=== PATIENT | female | born 1945 | race Caucasian/White ===

== ENCOUNTER → 2023-10-30 13:33 | Outpatient (CLI) | payer MEDICARE, SELFPAY ==
--- NOTE | 2023-10-30 13:36 | DI.NM.S_ITS ---
PROCEDURE: NM RENAL FUNCTION W LASIX RADIOPHARMACEUTICAL: 10.7 mCi Tc-99m MAG3 IV and 40 mg furosemide IV. INDICATIONS: OBST.OF RT URETEROPELVIC JUNCTION TECHNIQUE: The patient was hydrated orally before the examination was begun. After intravenous administration of Tc-99m MAG3, posterior abdominal radionuclide angiogram and sequential (1 minute each frame) renal images were obtained. A time-activity curve for each kidney was generated and analyzed. To evaluate for obstruction, the patient was given 40 mg furosemide via slow intravenous injection after the start of the examination. Sequential images were obtained for up to an additional 20 minutes. COMPARISON: None. FINDINGS: Perfusion: There is normal vascular flow to both kidneys. Morphology: There is a dilated right collecting system, mostly involving the pelvis. Function: The right kidney contributes 49.2 % of total renal function. The left kidney contributes 50.8 % of total renal function. Lasix stimulation: After diuretic administration, there is prompt clearance of tracer activity from the left collecting syste. Halftime of emptying from the left pelvicaliceal system is less than 10 minutes. Radiotracer in the right kidney accumulates in the dilated renal pelvis, following Lasix administration, there is no significant excretion past this point after 20 minutes. IMPRESSION: Obstructive physiology of the right kidney with markedly dilated renal pelvis. No significant excretion past this point is seen following Lasix administration. Anatomic imaging with CT or ultrasound could be helpful for confirmation. Normal split function. Dictated by: Navid Edmonds M.D. on 10/30/2023 at 15:09 Approved by: Navid Edmonds M.D. on 10/30/2023 at 15:33
== END ==
LOC: NUCM 13:34
PROVIDERS: PCP Family Medicine; Referring Provider Urology; Visit Provider Urology
DX: N13.5 Crossing vessel and stricture of ureter without hydronephrosis (principal)
CPT/HCPCS: 78708; A9562